=== PATIENT | female | born 2000 | race Caucasian/White ===

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

== ENCOUNTER 2021-10-26 09:09 | Emergency (ER) | payer MEDICAID, OTHER ==
[~2021-10-26] VITALS: Ht 154.9 cm; Wt 60.0 kg
[2021-10-26 09:22] VITALS: BP 110/63
[2021-10-26] MEDS ORDERED: ONDANSETRON HCL 4MG/2ML INJ IV STA (10:30)
[2021-10-26] MEDS ORDERED: SODIUM CHLORIDE 0.9% 1,000 ML IV ONE (10:30)
[2021-10-26 11:02] LABS: BASOPHILS % 0.3 % (0.0-2.0); CHLORIDE 106 mEq/L (98-107); EOSINOPHILS % 0.8 % (0.0-5.0); HEMATOCRIT. 40.9 % (36.0-48.0); HEMOGLOBIN. 14.2 g/dL (12.0-16.0); LYMPHOCYTES % 22.4 % (20.0-50.0); MEAN CORPUSCULAR HEMOGLOBIN 30.6 pg (28.0-32.0); MEAN PLATELET VOLUME 9.3 fl (7.4-10.4); MONOCYTES % 5.6 % (2.0-8.0); NEUTROPHILS % 70.9 % (40.0-76.0); PLATELET 182 x1000/uL (130-400); RED BLOOD CELL COUNT 4.64 mill/uL (4.2-5.4); RED CELL DISTRIBUTION WIDTH 13.5 % (11.6-14.6)
[2021-10-26 11:04] LABS: HCG SCREEN NEGATIVE
[2021-10-26 11:20] LABS: CLARITY URINE CLOUDY (CLEAR); COLOR URINE YELLOW (YELLOW); KETONES URINE 4+ (NEGATIVE); LEUKOCYTE ESTERASE URINE 1+ (NEGATIVE); NITRITE URINE NEGATIVE (NEGATIVE); OCCULT BLOOD URINE NEGATIVE (NEGATIVE); PH URINE 6.5 (4.5-8.0); PROTEIN URINE NEGATIVE (NEGATIVE); SPECIFIC GRAVITY URINE 1.017 (1.005-1.030)
[2021-10-26] MEDS ORDERED: ONDA4TAB5 MT (12:18)
== END 2021-10-26 12:47 | disposition home or self-care (01) ==
LOC: ER 09:09
DX: E86.0 Dehydration (principal); R10.9 Unspecified abdominal pain
CPT/HCPCS: 36415; 80053; 81003; 84703; 85025; 96361; 96374; 99283; J2405; J7030

== ENCOUNTER 2023-12-19 13:06 | Emergency (ER) | payer SELFPAY ==
[~2023-12-19] VITALS: Ht 154.9 cm; Wt 55.9 kg
[~2023-12-19 13:06] MED LIST: ONDA4TAB5 MT
[2023-12-19 13:25] VITALS: BP 125/68; PULSE 73; RESP 18; TEMP 98.1; O2SAT 100
[2023-12-19 13:54] LABS: CLARITY URINE CLOUDY (CLEAR); COLOR URINE DARK YELLOW (YELLOW); GLUCOSE URINE NEGATIVE (NEGATIVE); KETONES URINE TRACE (NEGATIVE); LEUKOCYTE ESTERASE URINE 2+ (NEGATIVE); NITRITE URINE NEGATIVE (NEGATIVE); OCCULT BLOOD URINE NEGATIVE (NEGATIVE); PROTEIN URINE 1+ (NEGATIVE); SPECIFIC GRAVITY URINE 1.033 (1.005-1.030)
[2023-12-19 14:19] LABS: WBC URINE 50-100 /hpf (0-2)
[2023-12-19 14:20] LABS: BASOPHILS % 0.4 % (0.0-2.0); EOSINOPHILS % 1.8 % (0.0-5.0); HEMATOCRIT. 40.3 % (36.0-48.0); HEMOGLOBIN. 13.6 g/dL (12.0-16.0); LYMPHOCYTES % 18.6 % (20.0-50.0); MEAN CORPUSCULAR HEMOGLOBIN 30.3 pg (28.0-32.0); MEAN CORPUSCULAR HGB CONC 33.8 g/dL (31.0-37.0); MEAN CORPUSCULAR VOLUME 89.6 fL (81.0-99.0); MEAN PLATELET VOLUME 8.8 fl (7.4-10.4); NEUTROPHILS % 74.2 % (40.0-76.0); PLATELET 226 x1000/uL (130-400); RED CELL DISTRIBUTION WIDTH 14.2 % (11.6-14.6); WHITE BLOOD COUNT 8.6 x1000/uL (4.5-11.0)
[2023-12-19 14:20] LABS: BACTERIA URINE 2+; SQUAMOUS EPITHELIAL CELL URINE 2+ /lpf (RARE/1+); YEAST URINE NONE SEEN
[2023-12-19 14:24] LABS: CHLORIDE 105 mEq/L (98-107); SODIUM 139 mEq/L (136-145)
[2023-12-19 14:25] LABS: CALCIUM 9.8 mg/dL (8.7-10.4); CARBON DIOXIDE 27 mEq/L (21-32)
[2023-12-19 14:30] LABS: CREATININE 0.7 mg/dL (0.6-1.0); GLUCOSE 81 mg/dL (70-105); UREA NITROGEN BLOOD 11 mg/dL (9-23)
[2023-12-19] MEDS ORDERED: CEPH500C2 MT (15:18)
== END 2023-12-19 16:17 | disposition home or self-care (01) ==
LOC: ER 13:06
DX: N39.0 Urinary tract infection, site not specified (principal)
CPT/HCPCS: 36415; 80048; 81003; 81025; 85025; 87077; 87186; 99283